=== PATIENT | female | born 1975 | race Hispanic/Latino ===

== ENCOUNTER 2022-09-20 15:48 | Emergency (ER) | payer OTHER ==
[~2022-09-20] VITALS: Ht 170.2 cm; Wt 136.1 kg
[2022-09-20] MEDS ORDERED: IBUPROFEN 600 MG TAB PO ONE (16:30)
[2022-09-20] MEDS ORDERED: ACETAMINOPHEN 325 MG TAB PO ONE (16:30)
[2022-09-20] MEDS ORDERED: ACETAMINOPHEN500 MG PO (16:36)
[2022-09-20] MEDS ORDERED: IBUPROFEN200 MG PO (16:36)
[2022-09-20] MEDS ORDERED: IBUPROFEN 600 MG TAB ONE (16:48)
== END 2022-09-20 17:36 | disposition home or self-care (01) ==
LOC: FSED 15:52
DX: S16.1XXA Strain of muscle, fascia and tendon at neck level, initial encounter (principal); R50.9 Fever, unspecified; V44.5XXA Car driver injured in collision with heavy transport vehicle or bus in traffic accident, initial encounter; Y92.488 Other paved roadways as the place of occurrence of the external cause; E11.9 Type 2 diabetes mellitus without complications; E04.1 Nontoxic single thyroid nodule
CPT/HCPCS: 72125; 99283